=== PATIENT | male | born 1990 | race Caucasian/White ===

== ENCOUNTER 2019-07-29 05:08 | Day surgery (SDC) | payer OTHER ==
[~2019-07-29] VITALS: Ht 190.5 cm; Wt 106.6 kg
[2019-07-29 05:40] LABS: BASOPHILS 0.2 % (0-2); EOSINOPHILS 3.3 % (0-7); HEMATOCRIT 40.5 % (42.0-54.0); HEMOGLOBIN 13.6 g/dL (13.5-17.5); IMMATURE GRANULOCYTES 0.2 % (0-5); LYMPHOCYTES 39.1 % (15-50); MCH 30.1 pg (26.0-34.0); MCHC 33.6 g/dL (31.0-37.0); MCV 89.6 fL (80.0-100.0); MEAN PLATELET VOLUME 9.1 fL (7.4-10.4); MONOCYTES 8.5 % (2-11); NEUTROPHILS 48.7 % (40-80); PLATELET COUNT 224 10x3/uL (130-400); RBC 4.52 10x6/uL (4.20-6.10); WBC 5.5 10x3/uL (4.8-10.8)
[2019-07-29 06:00] LABS: CALC OSMOLALITY 277 mosm/kg (275-300); CALCIUM 8.6 mg/dL (8.5-10.1); CARBON DIOXIDE 27.1 mmol/L (21.0-32.0); CHLORIDE - SERUM 107 mmol/L (98-107); CREATININE - SERUM 0.9 mg/dL (0.6-1.3); GLUCOSE 98 mg/dL (74-106); POTASSIUM - SERUM 3.9 mmol/L (3.5-5.1); SODIUM 140 mmol/L (136-145); UREA NITROGEN 10 mg/dL (7-18); eGFR NON AFRICAN AMERICAN > 90 mL/min (90-120)
[2019-07-29 06:12] VITALS: BP 121/78; Ht 190.5 cm; Wt 106.6 kg
--- NOTE | 2019-07-29 07:14 | NUR ---
SURGERY PICKING UP PT AT THIS TIME, STATES THAT DR NANCE WILL UPDATE H&P.
[2019-07-29] MEDS ORDERED: HYDROCODON-ACE1 EA10 PO (08:33)
--- NOTE | 2019-08-05 13:37 | OP ---
PATIENT NAME: LISSY ERNST MEDICAL RECORD: [id number] :89 LOCATION:[facility] ADMISSION DATE: SURGEON: TOMMIE NANCE MD DATE OF OPERATION: 07/29/2019 PREOPERATIVE DIAGNOSIS: External hemorrhoids. POSTOPERATIVE DIAGNOSIS: External hemorrhoids. PROCEDURE: Right anterior and right posterior hemorrhoidectomy. SURGEON: Tommie Nance MD REPORT OF PROCEDURE: The patient was placed in lithotomy position and the perianal region was prepped and draped in sterile fashion. A 360 degree inspection was performed of the patient's anal region. There were no masses or lesions present within the anus, but the patient did have hemorrhoids in all 3 columns. The largest ones were on the right side. We approached the right posterior hemorrhoid first as this was the largest. A 2-0 chromic was placed at the base of this hemorrhoid and tied down tightly. We then excised the hemorrhoid using electrocautery down to the sphincteric musculature. We then treated the surrounding tissues with electrocautery to stop any bleeding and irrigated out the wound with normal saline. The previously placed suture was run in a locking fashion out from the distal rectum to the anoderm with good approximation of the tissues. At this point, we approached the right anterior hemorrhoid. Again, a 2-0 chromic was placed at the base of the hemorrhoid in the distal rectum and tied down tightly. The hemorrhoid tissue was excised using electrocautery down to the sphincteric musculature. Any bleeding that was found was treated with electrocautery. We then irrigated out the wound with normal saline. The previously placed suture was then run in a locking fashion from the distal rectum to the anoderm with good approximation of the tissue. At this point, we infused a total of 10 mL of 0.25% Marcaine plain to the surrounding tissues of the incision sites. A piece of Gelfoam dipped in Americaine was then placed in the distal rectum. COMPLICATIONS: None. CONDITION: Stable. ANESTHESIA: General endotracheal and local. BLOOD LOSS: 30 mL. TRANSINT:[id number] Voice Confirmation ID: [id number] DOCUMENT ID: [id number] TOMMIE NANCE MD at 1337 CC: KAYLAH DAWN [id number] DICTATION DATE: 07/29/19840 PUBLIC HEALTH SANITARIAN: 07/29/19 0910 DEP SDC 07/29/19 [facility] [address] [place] [address]
== END 2019-07-29 10:50 | disposition home or self-care (01) ==
LOC: D.OPS 05:08 → D.PAN 07:15 → D.OPS 07:30
PROVIDERS: ATTEND Surgery
DX: K64.4 Residual hemorrhoidal skin tags (principal)